=== PATIENT | female | born 1950 | race Caucasian/White ===

== ENCOUNTER → 2023-12-07 20:18 | Outpatient (REF) | payer MEDICARE, OTHER, SELFPAY | LOC: MRI 3T 20:18 | PROVIDERS: ATTENDING PHYSICIAN Internal Medicine Hematology & Oncology; FAMILY PHYSICIAN Family Medicine | DX: C79.51 Secondary malignant neoplasm of bone (principal); C50.911 Malignant neoplasm of unspecified site of right female breast; M81.8 Other osteoporosis without current pathological fracture | CPT/HCPCS: 70553; A9575 ==

== ENCOUNTER → 2024-08-23 10:31 | Outpatient (REF) | payer MEDICARE, OTHER, SELFPAY | LOC: MRI 3T 10:31 | PROVIDERS: ATTENDING PHYSICIAN Internal Medicine Hematology & Oncology; FAMILY PHYSICIAN Family Medicine | DX: C79.51 Secondary malignant neoplasm of bone (principal); C50.911 Malignant neoplasm of unspecified site of right female breast | CPT/HCPCS: 72157; A9575 ==

== ENCOUNTER → 2025-08-01 12:25 | Outpatient (REF) | payer MEDICARE, OTHER, SELFPAY | LOC: HWRAD 12:25 | PROVIDERS: ATTENDING PHYSICIAN Internal Medicine Critical Care Medicine; FAMILY PHYSICIAN Family Medicine; REFERRING PHYSICIAN Internal Medicine Hematology & Oncology | DX: R91.1 Solitary pulmonary nodule (principal) | CPT/HCPCS: 71250 ==

== ENCOUNTER 2025-08-27 13:59 | Inpatient (IN) | payer MEDICARE, OTHER, SELFPAY ==
[2025-08-19 13:41] VITALS: BMI 23.3
[2025-08-19 13:57] LABS: INR 0.95; PT 13.0 Sec (11.4-14.6)
[2025-08-19 13:58] LABS: APTT 24.2 Sec (23.4-35.0)
[2025-08-26] VITALS (18 sets, daily range): BP systolic 85–175; BP diastolic 60–99; BMI 23.3
[2025-08-26] MEDS: VENTOLIN NEBULES 2.5 MG INH ×4 (07:17→20:25)
[2025-08-26] MEDS: DUONEB 3 ML INH (10:07)
--- NOTE | 2025-08-26 10:47 | W.PN.UPDATE ---
Update Note
Progress Note Update
Full H&P to follow. Discussed w/ Dr. Dean and MEDICAL INSURANCE CLAIMS SPECIALIST, pt is 75F former tobacco use hx breast cancer and family history lung cancer, here for outpt bronchoscopy to evaluate chronic cough and pulmonary nodules. Procedure was complicated w large
left pneumothorax requiring 8L to maintain saturation. IR placing chest tube. Admit to IMU for closer monitoring.
--- NOTE | 2025-08-26 10:50 | HPS.HSE ---
Family Physician
-
Family Physician: Meka Loyola
Chief Complaint
-
Shortness of breath
History of Present Illness
75F former smoker HTN pulm nodules chronic cough presented for outpatient bronchoscopy complicated with Large Left Pneumothorax, Acute Hypoxia required 8L, s/p chest tube placement with subsequent improvement in symptoms/hypoxia noted.
Medical History
Past Medical History
Past Medical History: Reports Other (as above )
Past Surgical History: Reports Other (as above)
Social History
Tobacco: Former Smoker
Alcohol: None
Drug: None
Personal:
Living: With Family
Family History
Family History: Not pertinent
Allergies / Home Medications
Allergies reflects when Allergies were last updated in [facility].
Home Medications with original date entered in [facility]
Allergy/Medication List:
Allergies
Allergy/AdvReac Type Severity Reaction Status Date / Time
bacitracin (From Neosporin Allergy Rash Verified 08/26/25 07:02
([id number]))
docetaxel (From Taxotere) Allergy increased Verified 08/26/25 07:02
HR/loss of
consciousness
neomycin (From Neosporin Allergy Rash Verified 08/26/25 07:02
([id number]))
Penicillins Allergy family hx Verified 08/26/25 07:02
anaphylaxis
polymyxin B (From Neosporin Allergy Rash Verified 08/26/25 07:02
([id number]))
Home Medications
Caltrate with Vitamin D3 1 tab PO DAILY Supplement 08/22/25
Vitamin B12 1,000 mg PO DAILY Supplement 08/22/25
albuterol sulfate 90 mcg/actuation aerosol inhaler 1 puff inhalation PRN PRN cough 08/22/25
ascorbic acid (vitamin C) 500 mg tablet (Vitamin C) 500 mg PO DAILY Supplement 08/22/25
bisacodyl 5 mg tablet,delayed release (Dulcolax (bisacodyl)) 5 mg PO DAILY PRN constipation 08/22/25
fluticasone fur. 100 mcg-umeclid 62.5 mcg-vilant 25 mcg inhalat.powder (Trelegy Ellipta) 1 inh inhalation PRN PRN cough 08/22/25
fulvestrant 250 mg/5 mL intramuscular syringe 500 mg IM .Q 28 DAYS Cancer 08/22/25
ibuprofen 200 mg tablet (Advil) 200 mg PO Q6H PRN pain/cough 08/22/25
metoprolol succinate 25 mg tablet,extended release 24 hr 25 mg PO HS Blood Pressure 08/22/25
ribociclib 400 mg/day (200 mg x 2) tablets (Kisqali) 400 mg PO DAILY Cancer 08/22/25
Review of Systems
-
A 12 point ROS was completed and negative except as noted: Yes
Constitutional: Reports Other (as below)
Physical Exam
Vital Signs
Vital Signs
Temp Pulse Resp BP Pulse Ox
98.5 F 96 22 146/92 96
08/26/25 09:17 08/26/25 10:42 08/26/25 10:42 08/26/25 10:42 08/26/25 10:42
Physical Exam
General: Other (as below)
Laboratory Results
-
Laboratory Results
PT 13.0 Sec (11.4-14.6) 08/19/25 13:23
INR 0.95 08/19/25 13:23
APTT 24.2 Sec (23.4-35.0) 08/19/25 13:23
Impression/Plan
-
ROS
General: Denies fever chills night sweats unexpected weight loss
Neuro: Denies seizure shaking loss of consciousness dizziness vertigo
Psych: denies depression hallucinations confusion manic episodes
Endocrine: Denies polyuria polydipsia polyphagia heat/cold intolerance
HEENT: Denies blindness visual disturbances epistaxis
Pulmonary: Reports chronic cough
Cardiovascular: denies chest pain palpitations leg swelling
Hematology: denies signs symptoms of anemia easy bruising/bleeding
Gastrointestinal: denies nausea vomiting diarrhea constipation hematemesis hematochezia melena
Genito-Urinary: denies retention incontinence dysuria
Musculoskeletal: reports left shoulder ribs pain
Dermatology: denies rash laceration bruising
Physical Exam
General: mild moderate distress d/t pain Left shoulder ribs
HEENT: Normocephalic, Anicteric and Moist Mucous Membranes
Cardiovascular: S1/S2 and Regular Rhythm
Respiratory: Clear, Non-Labored Respirations left sided chest tube in place
GI: Soft, Non Distended and Non Tender
Neurology: AOx3 conversant coherent
Psych: Calm, intact judgement
IMPRESSION:
75F former smoker HTN pulm nodules chronic cough presented for outpatient bronchoscopy complicated with Large Left Pneumothorax, Acute Hypoxia required 8L, s/p chest tube placement with subsequent improvement in symptoms/hypoxia noted.
PLAN:
Iatrogenic pneumothorax s/p elective bronchoscopy 08/26/25
s/p chest tube by IR 08/26/25
Pulmonary nodule, 1.5cm RML
Chronic cough
Breast Ca b/l mastectomies s/p implants
-Pulm Eval appreciated
-monitor in IMU
-follow up CMP Mg Phos
-pain control
-chest tube mgmt as per pulm/IR
Leukocytosis suspect stress reactive
-trend WBC
-monitor temp
-consider empiric abx if develops further signs of infection
DVT ppx scd
Full code
Discussed with patient and patient's family, including Arnav.
I spent a total of 75 minutes with the patient or on the floor. More than 50% of this time involved counseling and coordination of care.
[2025-08-26] MEDS: DILAUDID 0.5 MG IV ×2 (12:56→15:23)
--- NOTE | 2025-08-26 13:07 | PTCARENOTE ---
Patient arrived to IMU from IR. AOx3. Weaned patient to 4L NC with SpO2 98%. L sided chest tube in place -20 cm. Dressing c/d/i. NSR on monitor. BP stable. C/O of L sided chest pain. PRN pain medication given per JAN. Purewick in place. Call haney
within reach, bed in lowest position, and bed of wheels locked. Family at bedside.
--- NOTE | 2025-08-26 13:32 | CON.PUL ---
Consultation
Consultation Request
Date/Time Consultation Requested: 08/26/25
Date/Time Consultation Performed: 08/26/25
Performing Provider: Jacquelyn
Reason for Consultation: Post op Ptx
Medical History
-
History of Present Illness:
Patient is a 75 year old F with history of pulmonary nodule, former smoker, HTN presenting with postop pneumothorax after scheduled outpatient bronchoscopy today 08/26/25. Had BAL, bronchial brushings performed, post op CXR showing moderate sized L
ptx. Admitted for chest tube placement by IR. Currently admits to L sided chest/shoulder pain at site of chest tube but no cough/SOB.
Had recent CT showing 1.5cm RML nodule that was sampled. Data still pending.
She also has history of chronic cough, in past with chronic bronchiolitis diagnosis. Follows with Dr Spencer as outpatient.
Past Medical History
Past Medical History: Other (see list below)
Social History
Tobacco: Former Smoker
Alcohol: None
Drug: None
Family History
Family History: Reviewed & Not Pertinent
Allergies / Home Medications
Allergies
Allergy/AdvReac Type Severity Reaction Status Date / Time
bacitracin (From Neosporin Allergy Rash Verified 08/26/25 07:02
([id number]))
docetaxel (From Taxotere) Allergy increased Verified 08/26/25 07:02
HR/loss of
consciousness
neomycin (From Neosporin Allergy Rash Verified 08/26/25 07:02
([id number]))
Penicillins Allergy family hx Verified 08/26/25 07:02
anaphylaxis
polymyxin B (From Neosporin Allergy Rash Verified 08/26/25 07:02
([id number]))
Home Medications
�Medication �Instructions �Recorded �Confirmed �Last Taken �Type
Caltrate with Vitamin D3 1 tab PO DAILY 08/22/25 08/26/25 08/22/25 History
Vitamin B12 1,000 mg PO DAILY 1008/26/25 08/22/25 History
albuterol sulfate 90 mcg/actuation 1 puff inhalation PRN PRN cough 08/22/25 08/26/25 08/26/25 01:00 History
aerosol inhaler
ascorbic acid (vitamin C) 500 mg 500 mg PO DAILY 08/22/25 08/26/25 08/20/25 History
tablet (Vitamin C)
bisacodyl 5 mg tablet,delayed 5 mg PO DAILY PRN constipation 08/22/25 08/26/25 08/12/25 History
release (Dulcolax (bisacodyl))
fluticasone fur. 100 mcg-umeclid 1 inh inhalation PRN PRN cough 08/22/25 08/26/25 08/19/25 History
62.5 mcg-vilant 25 mcg
inhalat.powder (Trelegy Ellipta)
fulvestrant 250 mg/5 mL 500 mg IM .Q 28 DAYS 08/22/25 08/26/25 08/01/25 History
intramuscular syringe
ibuprofen 200 mg tablet (Advil) 200 mg PO Q6H PRN pain/cough 08/22/25 08/26/25 08/22/25 History
metoprolol succinate 25 mg 25 mg PO HS 08/22/25 08/26/25 08/26/25 05:30 History
tablet,extended release 24 hr
ribociclib 400 mg/day (200 mg x 2) 400 mg PO DAILY 08/22/25 08/26/25 2 Weeks Ago History
tablets (Kisqali) ~08/08/25
Review of Systems
-
History Source: Patient
All other systems: Negative unless noted
Vitals / Labs / Diagnostic Testing
Vital Signs
Temp Pulse Resp BP Pulse Ox
97.9 F 76 16 163/74 98
08/26/25 11:50 08/26/25 13:25 08/26/25 13:25 08/26/25 12:39 08/26/25 13:25
Microbiology
08/26/25 09:13 Bronch Left Upper Lobe Gram Stain - Preliminary
08/26/25 09:13 Bronch Left Upper Lobe Gram Stain - Preliminary
08/26/25 09:13 Bronchoalveolar Lavage Fungal Culture - Preliminary
Culture in progress.
Positive cultures are reported as soon as detected.
Final report to follow in four to five weeks.
08/26/25 09:13 Bronch Left Upper Lobe Fungal Culture - Preliminary
Culture in progress.
Positive cultures are reported as soon as detected.
Final report to follow in four to five weeks.
Diagnostic Testing:
Physical Exam
-
HEENT: Normocephalic, Anicteric and Moist Mucous Membranes
Cardiovascular: S1/S2 and Regular Rhythm
Respiratory: Clear, Non-Labored Respirations and Other (chest tube)
GI: Soft, Non Distended and Non Tender
Neurology: Awake, Alert, Oriented and No Motor Deficits
Skin: Warm, Dry and Good Color
General: Comfortable and Other (NAD)
Assessment
-
Patient is a 75 year old F with history of pulmonary nodule, former smoker, HTN presenting with postop pneumothorax after scheduled outpatient bronchoscopy today 08/26/25. Had BAL, bronchial brushings performed, post op CXR showing moderate sized L
ptx. Admitted for chest tube placement by IR. Currently admits to L sided chest/shoulder pain at site of chest tube but no cough/SOB. We are consulted for evaluation 08/26/25.
Iatrogenic pneumothorax s/p elective bronchoscopy 08/26/25
s/p chest tube by IR 08/26/25
Pulmonary nodule, 1.5cm RML
Chronic cough
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
Former smoker
Osteopenia
HTN
Hydromyelia
Lumpectomy
BL Mastectomy s/p implants
Plan
No oxygen was needed on admission, currently saturating >90% on RA
Prior history of lung disease is noted including chronic cough, bronchiolitis, lung nodule
Followed by Dr Spencer
s/p elective bronchoscopy 08/26, await final on culture/path
CXR/CT obtained indicating PTX, can obtain CXR now
No air leak at chamber, can place on WTS through evening to AM and clamp in AM if remains stable
Other imaging reviewed--prior CT with nodule noted
Pain control, agree wtih PO/IV PRNs
Tylenol can change to solution, she has trouble with pills per family
No prior CAD history
No prior ECHO for review
Smoking history noted
Will need outpatient pulmonary evaluation in our office for PFTs and 6MWT
Reviewed with patient
Hopeful d/c in next 24 hours if doing well with chest tube/discontinuation process
Spoke with family in detail, all questions answered
We will follow
Diagnostic Data
Chest X-Ray: 08/26/25- Large left-sided pneumothorax with partial collapse of the left lung.
CT Scan: 08/01/25- 1. Stable sclerotic lesion within the T11 vertebral body. Otherwise no definitive evidence for metastatic disease within the chest.
2. Multiple peripheral/subpleural tree-in-bud nodules within both lower lobes compatible with infectious or inflammatory bronchiolitis. Chronic bronchiectasis and airspace consolidation within the lingula. Scattered bronchial impaction within the
right middle lobe with nodular consolidation peripherally measuring up to 10 mm. There also appears to be some bronchiectasis within the medial left upper lobe with some adjacent irregular opacities, likely inflammatory or infectious.
3. Couple of scattered irregular peripheral opacities within the right upper lobe, the largest measuring up to 12 mm laterally, also likely infectious or inflammatory in nature.
4. New area of subpleural reticulation and thickening within the anterior left upper lobe, likely scarring.
5. No gross hilar or mediastinal lymphadenopathy.
Echo:
PFT's:
Reports and relevant images were personally reviewed.
Total time spent on this consultation __75__ minutes which includes review of history, physical exam, medications, laboratory data, personal review of imaging, extensive review of outpatient records, discussion with care team and respiratory therapy.
[2025-08-26] MEDS: LIDOCAINE 4% PATCH 1 PATCH TOPICAL ×2 (15:23→15:24)
[2025-08-26 15:24] LABS: Hematocrit 35.9 % (37.0-47.0); Hemoglobin 11.5 g/dL (12.0-16.0); Mean Corp Hgb Conc. 32.0 g/dL (33.0-37.0); Mean Corpuscular Volume 101.1 fL (81.0-99.0); Platelet Count 307 10^3/uL (130-400); Red Cell Dist. Width 13.8 % (11.5-14.5)
--- NOTE | 2025-08-26 15:50 | PTCARENOTE ---
Attempted to wean patient to RA, but SpO2 87%. Placed patient back on 2L with SpO2 improvement to 95%.
[2025-08-26 16:01] LABS: Magnesium 1.8 mg/dl (1.6-2.3)
[2025-08-26 16:20] LABS: ALT (SGPT) 31 U/L (0-35); AST (SGOT) 32 U/L (14-36); Albumin 4.1 g/dl (3.5-5.0); Alkaline Phosphatase 73 U/L (38-126); Blood Urea Nitrogen 12 mg/dl (7-17); Calcium 8.3 mg/dl (8.4-10.2); Carbon Dioxide 18 mmol/L (22-30); Chloride 110 mmol/L (98-107); Estimated Creatinine Clearance 64 ml/min; Glucose 196 mg/dl (70-99); Potassium 4.6 mmol/L (3.5-5.1); Sodium 139 mmol/L (135-145); Total Protein 6.9 g/dl (6.3-8.2); eGFR > 60.00
[2025-08-26] MEDS: TYLENOL ORAL SOLUTION 650 MG PO (17:44)
[2025-08-26] MEDS: REMOVE LIDOCAINE PATCH 2 PATCH REMOVE (19:59)
[2025-08-26] MEDS: DILAUDID 1 MG IV (19:59)
[2025-08-26] MEDS: TOPROL XL 25 MG PO (21:21)
[2025-08-26] MEDS: TYLENOL ORAL SOLUTION PO (23:23)
[2025-08-27] VITALS (13 sets, daily range): BP systolic 104–173; BP diastolic 43–94
[2025-08-27] MEDS: TUMS CHEWABLE TABLET 400 MG PO (00:27)
[2025-08-27] MEDS: DILAUDID 1 MG IV (00:27)
--- NOTE | 2025-08-27 02:34 | PTCARENOTE ---
Pt appearing to get rest over night. Pt requesting pain medication when needed, see mar. Pt able to ambulate to bathroom [id number] for help moving chest tube. ChT remains on water seal no air leak seen, site clean dry and intact. Pt having complaints of
indigestions after Tylenol. MERCHANDISE BUYER made aware, order for prn Tums placed. Assessment care and vitals as charted. call bel within reach, bed in lowest position.
[2025-08-27] MEDS: ZOFRAN 4 MG IV (04:13)
[2025-08-27] MEDS: DUONEB 3 ML INH (04:32)
[2025-08-27] MEDS: TYLENOL ORAL SOLUTION PO ×4 (04:46→22:56)
--- NOTE | 2025-08-27 04:46 | PTCARENOTE ---
Pt having complaints of nausea. Night THERAPIST RESPIRATORY placed order for Zofran. Pt having some relief at this time. Pt also requesting a breathing treatment, RT to bed side.
[2025-08-27] MEDS: VENTOLIN NEBULES INH (07:22)
[2025-08-27] MEDS: VITAMIN B-12 PO (07:24)
[2025-08-27] MEDS: LIDOCAINE 4% PATCH TOPICAL ×4 (07:25→07:27)
--- NOTE | 2025-08-27 08:12 | W.PN.HOSP.TC ---
Today's Communication/Plan
-
Follow up CXR in AM
urinalysis reflex cx
PT eval
trend WBC
possible discharge tomorrow if stable/cont to improve.
Assessment / Plan
Assessment / Plan
Physical Exam
General: no acute distress, appears comfortable at this time
HEENT: Normocephalic, Anicteric and Moist Mucous Membranes
Cardiovascular: S1/S2 and Regular Rhythm
Respiratory: Clear, Non-Labored Respirations left sided chest tube in place
GI: Soft, Non Distended and Non Tender
Neurology: AOx3 conversant coherent
Psych: Calm, intact judgement
IMPRESSION:
75F former smoker HTN pulm nodules chronic cough presented for outpatient bronchoscopy complicated with Large Left Pneumothorax, Acute Hypoxia required 8L, s/p chest tube placement with subsequent improvement in symptoms/hypoxia noted.
PLAN:
Iatrogenic pneumothorax s/p elective bronchoscopy 08/26/25
s/p chest tube by IR 08/26/25
Pulmonary nodule, 1.5cm RML
Chronic cough
Breast Ca b/l mastectomies s/p implants
-Pulm Eval appreciated
-monitor in IMU
-pain control
-chest tube mgmt as per pulm/IR, chest tube removed later in day 08/27 with post-removal CXR noted no pneumothorax, repeat CXR in AM tomorrow, possible discharge then if CXR remains clear of pneumothorax.
Leukocytosis suspect stress reactive
-WBC increasing
-briefly was started on ceftriaxone and doxycycline, discontinued with negative procalcitonin
-monitor temp and trend wbc
-check urinalysis reflex cx (reports of urinary frequency urgency- see patient care note 08/27 15:56)
PT eval requested (requiring assist x1 when oob)
DVT ppx scd
Full code
Discussed with patient and patient's Arnav.
I spent a total of 45 minutes with the patient or on the floor. More than 50% of this time involved counseling and coordination of care.
Anticipated Discharge: Within 24 hours
Subjective/Interval History
-
Date of Service: August 27, 2025
No acute distress, appears relatively comfortably, chronic cough persist. Pain from chest tube controlled at this time.
Objective Data
-
Labs:
Laboratory Results
08/27/25 08/27/25
07:44 07:48
WBC Pending
Hgb Pending
Hct Pending
Plt Count Pending
Sodium Pending
Potassium Pending
Chloride Pending
Carbon Dioxide Pending
BUN Pending
Creatinine Pending
Glucose Pending
Calcium Pending
Vital Signs:
Vital Signs
Temp Pulse Resp BP Pulse Ox
97.8 F 82 12 114/47 92
08/27/25 07:33 08/27/25 06:00 08/27/25 06:00 08/27/25 06:00 08/27/25 06:00
I&O
08/26/25 08/27/25 08/28/25
06:59 06:59 06:59
Intake Total 1070 / 1070
Output Total 3 / 3
Balance 1067 / 1067
[2025-08-27 08:21] LABS: Hematocrit 35.9 % (37.0-47.0); Hemoglobin 11.2 g/dL (12.0-16.0); Mean Corp Hgb Conc. 31.2 g/dL (33.0-37.0); Mean Corpuscular Volume 103.5 fL (81.0-99.0); Platelet Count 271 10^3/uL (130-400); Red Cell Dist. Width 14.1 % (11.5-14.5)
[2025-08-27] MEDS: COMPAZINE 5 MG IV (08:53)
--- NOTE | 2025-08-27 08:56 | PTCARENOTE ---
Patient c/o nausea. Dr. Gresham made aware and ordered IV compazine. Administered to patient. HOB 90 degrees. Emesis bag within reach. Care ongoing.
[2025-08-27 09:13] LABS: Blood Urea Nitrogen 19 mg/dl (7-17); Calcium 9.3 mg/dl (8.4-10.2); Carbon Dioxide 23 mmol/L (22-30); Chloride 109 mmol/L (98-107); Estimated Creatinine Clearance 64 ml/min; Glucose 132 mg/dl (70-99); Magnesium 2.0 mg/dl (1.6-2.3); Potassium 4.7 mmol/L (3.5-5.1); Sodium 137 mmol/L (135-145); eGFR > 60.00
--- NOTE | 2025-08-27 09:16 | W.PN.PUL3 ---
Today's Communication / Plan
-
Remains stable on RA, pain better this AM
Chest tube without air leak, CXR wtih possible small apical ptx
Can still try clamp trial, repeat CXR in 1 hour, reviewed with RN
If can be discontinued, can plan for d/c planning
Assessment
-
Patient is a 75 year old F with history of pulmonary nodule, former smoker, HTN presenting with postop pneumothorax after scheduled outpatient bronchoscopy today 08/26/25. Had BAL, bronchial brushings performed, post op CXR showing moderate sized L
ptx. Admitted for chest tube placement by IR. Currently admits to L sided chest/shoulder pain at site of chest tube but no cough/SOB. We are consulted for evaluation 08/26/25.
Iatrogenic pneumothorax s/p elective bronchoscopy 08/26/25
s/p chest tube by IR 08/26/25
Pulmonary nodule, 1.5cm RML
Chronic cough
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
Former smoker
Osteopenia
HTN
Hydromyelia
Lumpectomy
BL Mastectomy s/p implants
Plan
No oxygen was needed on admission, currently saturating >90% on RA
Prior history of lung disease is noted including chronic cough, bronchiolitis, lung nodule
Followed by Dr Spencer
s/p elective bronchoscopy 08/26, await final on culture/path
CXR/CT obtained indicating PTX, can obtain CXR now
No air leak at chamber, can place on WTS through evening to AM and clamp in AM if remains stable
Other imaging reviewed--prior CT with nodule noted
Tolerated WTS but has possible apical ptx, can still trial clamp and see if she maintains
No airleak in chamber
Repeat CXR in 1 hour of trial, reviewed with RN
Pain control, agree wtih PO/IV PRNs
Tylenol can change to solution, she has trouble with pills per family
No prior CAD history
No prior ECHO for review
Smoking history noted
Will need outpatient pulmonary evaluation in our office for PFTs and 6MWT
Reviewed with patient
Spoke with family in detail, all questions answered
If doing well and chest tube discontinued, can eval for d/c planning
Diagnostic Data
Chest X-Ray: 08/26/25- Large left-sided pneumothorax with partial collapse of the left lung.
CT Scan: 08/01/25- 1. Stable sclerotic lesion within the T11 vertebral body. Otherwise no definitive evidence for metastatic disease within the chest.
2. Multiple peripheral/subpleural tree-in-bud nodules within both lower lobes compatible with infectious or inflammatory bronchiolitis. Chronic bronchiectasis and airspace consolidation within the lingula. Scattered bronchial impaction within the
right middle lobe with nodular consolidation peripherally measuring up to 10 mm. There also appears to be some bronchiectasis within the medial left upper lobe with some adjacent irregular opacities, likely inflammatory or infectious.
3. Couple of scattered irregular peripheral opacities within the right upper lobe, the largest measuring up to 12 mm laterally, also likely infectious or inflammatory in nature.
4. New area of subpleural reticulation and thickening within the anterior left upper lobe, likely scarring.
5. No gross hilar or mediastinal lymphadenopathy.
Echo:
PFT's:
Reports and relevant images were personally reviewed.
Total time spent on this consultation __51__ minutes which includes review of history, physical exam, medications, laboratory data, personal review of imaging, extensive review of outpatient records, discussion with care team and respiratory therapy.
Subjective Data
-
Date of Service:
Date of Service: August 27, 2025
Chief Complaint: Pulmonary Follow Up
Subjective:
Reports nausea, decreased PO intake
Stable on RA
Pain better this AM
Objective Data
Data Reviewed
Vital Signs / I&O / Oxygen:
Vital Signs
Temp Pulse Resp BP Pulse Ox
97.8 F 84 18 173/81 95
08/27/25 07:33 08/27/25 08:14 08/27/25 08:14 08/27/25 08:01 08/27/25 08:14
Intake and Output
08/26/25 08/27/25 08/28/25
06:59 06:59 06:59
Intake Total 1070 / 1070
Output Total 3 / 3
Balance 1067 / 1067
SaO2 95
Nasal Cannula flow liters per 2
minute
Physical Exam
General: Comfortable and Other (NAD)
HEENT: Normocephalic, Anicteric and Moist Mucous Membranes
Cardiovascular: S1-S2 and Regular Rhythm
Respiratory: Clear, Non-Labored Respirations and Chest Tube
GI: Soft, Non Distended and Non Tender
Neurology: Awake, Alert, Oriented and No Motor Deficits
Skin: Warm, Dry and Good Color
Labs/Micro/Reports
Lab Data
08/27/25 08:13
08/27/25 08:13
Microbiology
08/26/25 09:13 Bronch Left Upper Lobe Gram Stain - Preliminary
08/26/25 09:13 Bronch Left Upper Lobe Gram Stain - Preliminary
08/26/25 09:13 Bronchoalveolar Lavage Fungal Culture - Preliminary
Culture in progress.
Positive cultures are reported as soon as detected.
Final report to follow in four to five weeks.
08/26/25 09:13 Bronch Left Upper Lobe Fungal Culture - Preliminary
Culture in progress.
Positive cultures are reported as soon as detected.
Final report to follow in four to five weeks.
[2025-08-27 09:20] LABS: Glycohemoglobin (HgbA1c) 5.6 % (4.0-5.6)
[2025-08-27] MEDS: ROCEPHIN 2000 MG IV (09:45)
[2025-08-27] MEDS: STERILE WATER FOR INJECTION 20 ML IV (09:45)
[2025-08-27] MEDS: ROBITUSSIN 200 MG PO (09:45)
[2025-08-27] MEDS: VIBRAMYCIN 260 MG IV (10:30)
[2025-08-27 10:44] LABS: Procalcitonin < 0.05 ng/ml (0.0-0.25)
--- NOTE | 2025-08-27 11:11 | PTCARENOTE ---
L sided chest tube clamped at [address] Valladares order. Advised patient to let staff know if she starts to have shortness of breath. Call haney within reach. SpO2 95% on RA. Repeat CXR one hour post clamping chest tube. Care ongoing.
--- NOTE | 2025-08-27 11:44 | PTCARENOTE ---
Patient's pulse ox was disconnected. RN to bedside. Patient found sitting on toilet by herself. Ambulated patient safely back to bed and educated her that she is not allowed to get out of bed without staff assistance. Bed alarm on and audible. Call
haney within reach.
--- NOTE | 2025-08-27 14:10 | PTCARENOTE ---
Patient off unit to IR to remove L chest tube
--- NOTE | 2025-08-27 15:08 | PN.IRAD.UPD ---
Update Note - IRAD
- -
Left chest tube removed . New ,dry,clean dressing placed over site with Vaseline gauze. Patient tolerated procedure well
--- NOTE | 2025-08-27 15:13 | PTOTSP ---
Speech Therapy Evaluation:
Pt with chronic risk factors of dysphagia including prior hx of lung disease including chronic cough, bronchiolitis, lung nodules, and pneumonia hx. At bedside, pt denied any trouble swallowing solids/liquids, however endorsed difficulty with
medications, which she reported was all 'mental.' Pt with adequate insight on how to alleviate difficulty with medications. Current CXR with clear lungs, pt on room air, and pt without dysphagia hx.
Recommend:
1. Regular solids and thin liquids
2. Meds as best tolerated
3. General aspiration and reflux precautions
4. PROFESSOR OF RELIGION to s/o - please reconsult if concern for aspiration arises.
--- NOTE | 2025-08-27 15:55 | PTCARENOTE ---
Patient arrived back from IR post L chest tube removal. Dressing c/d/i. SpO2 96% on RA. Denies shortness of breath. VSS. Call haney within reach and bed alarm on and audible.
--- NOTE | 2025-08-27 15:56 | PTCARENOTE ---
Patient AOx3. Forgetful at times. Bed alarm on and audible. NSR on monitor. BP stable. On RA throughout shift. Dry frequent cough. Patient stated that 'pain is much better on left side since chest tube was removed'. Assist x1 when OOB. Patient has
frequency and urgency when urinating. Denies nausea after PRN compazine given. Call haney within reach, bed in lowest position, and bed of wheels locked.
--- NOTE | 2025-08-27 16:03 | CM ---
Initial Assessment Completed By BRENDEN Pressley.
Patient lives in a 2 story house with her , with 2 steps to enter the home, a stair glide inside, uses No DME, had No Home PT/VN nor Inpatient Rehab.
PCP: > Meka Ferris
Pharmacy: [facility] on [address] [place] [address] in [facility]
Patient has transportation home when ready. PLAN: Anticipate Home No Needs.
[2025-08-27] MEDS: TOPROL XL 25 MG PO (22:03)
[2025-08-28] VITALS (7 sets, daily range): BP systolic 123–158; BP diastolic 55–93; PULSE 83; O2SAT 96; BMI 22.1
[2025-08-28] MEDS: TYLENOL ORAL SOLUTION 650 MG PO ×2 (00:10→09:00)
[2025-08-28 00:17] LABS: Urine Character Clear (Clear)
[2025-08-28 00:31] LABS: Urine Red Blood Cell 0-2 /HPF (0-2); Urine Squamous Cell 0-2 /LPF (Few)
--- NOTE | 2025-08-28 02:18 | DOWNTIME ---
There was a [employer] Client Turret Lathe Machinist Downtime on 08/28/2025 from 0100 to 08/28/2025 at 0215. Downtime documentation of patient's care, including medication administrations, has been reconciled in the electronic record per guidelines. Refer to the
patient's paper chart under the miscellaneous tab to see printed paper medication records and downtime forms.
[2025-08-28] MEDS: TYLENOL ORAL SOLUTION PO (06:06)
[2025-08-28 06:34] LABS: Hematocrit 38.0 % (37.0-47.0); Hemoglobin 12.3 g/dL (12.0-16.0); Mean Corp Hgb Conc. 32.4 g/dL (33.0-37.0); Mean Corpuscular Volume 100.8 fL (81.0-99.0); Nucleated Red Blood Cells % 0 %; Platelet Count 278 10^3/uL (130-400); Red Cell Dist. Width 13.9 % (11.5-14.5)
[2025-08-28 06:54] LABS: Blood Urea Nitrogen 15 mg/dl (7-17); Calcium 9.2 mg/dl (8.4-10.2); Carbon Dioxide 25 mmol/L (22-30); Chloride 111 mmol/L (98-107); Estimated Creatinine Clearance 64 ml/min; Glucose 88 mg/dl (70-99); Potassium 4.0 mmol/L (3.5-5.1); Sodium 139 mmol/L (135-145); eGFR > 60.00
[2025-08-28] MEDS: VITAMIN B-12 1000 MCG PO (08:57)
--- NOTE | 2025-08-28 11:36 | W.PN.PUL3 ---
Today's Communication / Plan
-
Chest tube discontinued 08/27
Repeat CXR this AM remains stable
No events ON, no new complaints
D/c planning per team, she has appt next week, instructed to keep
Assessment
-
Patient is a 75 year old F with history of pulmonary nodule, former smoker, HTN presenting with postop pneumothorax after scheduled outpatient bronchoscopy today 08/26/25. Had BAL, bronchial brushings performed, post op CXR showing moderate sized L
ptx. Admitted for chest tube placement by IR. Currently admits to L sided chest/shoulder pain at site of chest tube but no cough/SOB. We are consulted for evaluation 08/26/25.
Iatrogenic pneumothorax s/p elective bronchoscopy 08/26/25
s/p chest tube by IR 08/26/25
Pulmonary nodule, 1.5cm RML
Chronic cough
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
Former smoker
Osteopenia
HTN
Hydromyelia
Lumpectomy
BL Mastectomy s/p implants
Plan
No oxygen was needed on admission, currently saturating >90% on RA
Prior history of lung disease is noted including chronic cough, bronchiolitis, lung nodule
Followed by Dr Spencer
s/p elective bronchoscopy 08/26, await final on culture/path
CXR/CT obtained indicating PTX, can obtain CXR now
No air leak at chamber, can place on WTS through evening to AM and clamp in AM if remains stable
Other imaging reviewed--prior CT with nodule noted
Tolerated WTS but has possible apical ptx, can still trial clamp and see if she maintains
No airleak in chamber
Repeat CXR in 1 hour of trial, reviewed with RN
CT discontinued 08/27, tolerated well
Repeat CXR this AM-stable
Pain control, agree wtih PO/IV PRNs
Tylenol can change to solution, she has trouble with pills per family
No prior CAD history
No prior ECHO for review
Smoking history noted
Will need outpatient pulmonary evaluation in our office for PFTs and 6MWT
Reviewed with patient
Spoke with family in detail, all questions answered
If doing well and chest tube discontinued, can eval for d/c planning
Diagnostic Data
Chest X-Ray: 08/26/25- Large left-sided pneumothorax with partial collapse of the left lung.
CT Scan: 08/01/25- 1. Stable sclerotic lesion within the T11 vertebral body. Otherwise no definitive evidence for metastatic disease within the chest.
2. Multiple peripheral/subpleural tree-in-bud nodules within both lower lobes compatible with infectious or inflammatory bronchiolitis. Chronic bronchiectasis and airspace consolidation within the lingula. Scattered bronchial impaction within the
right middle lobe with nodular consolidation peripherally measuring up to 10 mm. There also appears to be some bronchiectasis within the medial left upper lobe with some adjacent irregular opacities, likely inflammatory or infectious.
3. Couple of scattered irregular peripheral opacities within the right upper lobe, the largest measuring up to 12 mm laterally, also likely infectious or inflammatory in nature.
4. New area of subpleural reticulation and thickening within the anterior left upper lobe, likely scarring.
5. No gross hilar or mediastinal lymphadenopathy.
Echo:
PFT's:
Reports and relevant images were personally reviewed.
Total time spent on this consultation __45__ minutes which includes review of history, physical exam, medications, laboratory data, personal review of imaging, extensive review of outpatient records, discussion with care team and respiratory therapy.
Subjective Data
-
Date of Service:
Date of Service: August 28, 2025
Chief Complaint: Pulmonary Follow Up
Subjective:
Doing well, no new complaints
Stable on RA
Objective Data
Data Reviewed
Vital Signs / I&O / Oxygen:
Vital Signs
Temp Pulse Resp BP Pulse Ox
97.9 F 81 18 158/93 96
08/28/25 08:24 08/28/25 10:00 08/28/25 10:00 08/28/25 09:42 08/28/25 09:42
Intake and Output
08/27/25 08/28/25 08/29/25
06:59 06:59 06:59
Intake Total 1070 / 1070 1220 / 1220
Output Total 200 / 200 300 / 300
Balance 1067 / 1067 1020 / 1020 -300 / -300
SaO2 96
Nasal Cannula flow liters per 2
minute
Physical Exam
General: Comfortable and Other (NAD)
HEENT: Normocephalic, Anicteric and Moist Mucous Membranes
Cardiovascular: S1-S2 and Regular Rhythm
Respiratory: Clear and Non-Labored Respirations
GI: Soft, Non Distended and Non Tender
Neurology: Awake, Alert, Oriented and No Motor Deficits
Skin: Warm, Dry and Good Color
Labs/Micro/Reports
Lab Data
08/28/25 05:49
08/28/25 05:49
Microbiology
08/26/25 09:13 Bronch Left Upper Lobe Respiratory Culture - Final
NO GROWTH
08/26/25 09:13 Bronch Left Upper Lobe Gram Stain - Final
08/26/25 09:13 Bronch Left Upper Lobe Respiratory Culture - Final
08/26/25 09:13 Bronch Left Upper Lobe Gram Stain - Final
08/26/25 09:13 Bronchoalveolar Lavage Fungal Culture - Preliminary
Culture in progress.
Positive cultures are reported as soon as detected.
Final report to follow in four to five weeks.
08/26/25 09:13 Bronch Left Upper Lobe Fungal Culture - Preliminary
Culture in progress.
Positive cultures are reported as soon as detected.
Final report to follow in four to five weeks.
--- NOTE | 2025-08-28 11:57 | W.PN.HOSP.TC ---
Today's Communication/Plan
-
DC home
outpatient pulmonary follow-up
Assessment / Plan
Assessment / Plan
Physical Exam
General: no acute distress, appears comfortable at this time
HEENT: Normocephalic, Anicteric and Moist Mucous Membranes
Cardiovascular: S1/S2 and Regular Rhythm
Respiratory: Clear, Non-Labored Respirations
GI: Soft, Non Distended and Non Tender
Neurology: AOx3 conversant coherent
Psych: Calm, intact judgement
IMPRESSION:
75F former smoker HTN pulm nodules chronic cough presented for outpatient bronchoscopy complicated with Large Left Pneumothorax, Acute Hypoxia required 8L, s/p chest tube placement with subsequent improvement in symptoms/hypoxia noted.
PLAN:
Iatrogenic pneumothorax s/p elective bronchoscopy 08/26/25
s/p chest tube by IR 08/26/25
Pulmonary nodule, 1.5cm RML
Chronic cough
Breast Ca b/l mastectomies s/p implants
-Pulm Eval appreciated
-pain control
-chest tube mgmt as per pulm/IR, chest tube removed later in day 08/27 with post-removal CXR noted no pneumothorax, repeat CXR this morning with no pneumothorax
Follow-up bronchoscopy results are pulmonary in the office-. Preliminary microbiology results seems negative
Leukocytosis suspect stress reactive
-WBC i down trended
-briefly was started on ceftriaxone and doxycycline, discontinued with negative procalcitonin
-monitor temp and trend wbc
- UA seems benign. Patient continues to remain afebrile.
PT eval requested home
DVT ppx scd
Full code
Discussed with patient's Arnav.
Discussed with pulmonary
More than 30 minutes spent in discharge including
Final examination of the patient
Summarizing hospital stay
Instructions for continuing care to all relevant caregivers
Preparation of discharge records, prescriptions, and referral forms
Total time spent (in minutes): 53
Anticipated Discharge: Today
Subjective/Interval History
-
Date of Service: August 28, 2025
Intermittent cough
Chest tube was removed yesterday
On room air
Objective Data
-
Labs:
Laboratory Results
08/28/25
05:49
WBC 15.6 H
Hgb 12.3
Hct 38.0
Plt Count 278
Sodium 139
Potassium 4.0
Chloride 111 H
Carbon Dioxide 25
BUN 15
Creatinine 0.7
Glucose 88
Calcium 9.2
Vital Signs:
Vital Signs
Temp Pulse Resp BP Pulse Ox
98.0 F 81 18 158/93 96
08/28/25 11:44 08/28/25 10:00 08/28/25 10:00 08/28/25 09:42 08/28/25 09:42
I&O
08/27/25 08/28/25 08/29/25
06:59 06:59 06:59
Intake Total 1070 / 1070 1220 / 1220
Output Total 3 / 3 200 / 200 300 / 300
Balance 1067 / 1067 1020 / 1020 -300 / -300
--- NOTE | 2025-08-28 12:04 | W.DCSUMMARY ---
Discharge Summary
Discharge Data
Date of Admission: 08/27/25
Date of Discharge: 08/28/25
-
Pending Results: Yes
Additional Pending Results:
Bronchoscopy results with pulmonary
Hospital Course
75F former smoker HTN pulm nodules chronic cough presented for outpatient bronchoscopy complicated with Large Left Pneumothorax, Acute Hypoxia required 8L, s/p chest tube placement with subsequent improvement in symptoms/hypoxia noted. Oxygen was
able to be weaned off. Pulmonary was consulted. Interventional radiology placed chest tube. Patient underwent chest tube clamping trial. Oxygen was completely weaned off. Patient was stable on room air. Chest tube was eventually removed in
08/27/2025. Overnight patient did well. Repeat chest x-ray on day of discharge with no pneumothorax. Patient also with leukocytosis likely reactive. WBC down trended. Patient being completely afebrile. UA seem benign. Patient will need to
follow-up bronchoscopy results by pulmonary as outpatient.
Discharge Plan
-
Patient Disposition: Home (Routine Discharge)
Discharge Diagnosis/Procedures: Iatrogenic pneumothorax s/p elective bronchoscopy 08/26/25 status post chest tube placement status post chest tube removal
Leukocytosis
Condition: Fair
Diet: Regular
Activity: As tolerated
Driving Restrictions: As prior to admission
Blood Work: CBC in 1 week via primary doctor
Referrals:
Anai Dean MD [Active, Pulmonary Medicine] - in one to two weeks
Referral Note: call to make appt. follow up bronchoscopy results
Meka Loyola MD [Family Provider, Family Practice]
Prescriptions:
Continued
fulvestrant 250 mg/5 mL Syringe
500 mg IM .Q 28 DAYS
Kisqali 400 mg/day (200 mg x 2) Tablet
400 mg PO DAILY
Trelegy Ellipta 100-62.5-25 mcg Blister With Device
1 inh INHALATION PRN PRN (Reason: cough)
ascorbic acid (vitamin C) [Vitamin C] 500 mg Tablet
500 mg PO DAILY
ibuprofen [Advil] 200 mg Tablet
200 mg PO Q6H PRN (Reason: pain/cough)
bisacodyl [Dulcolax (bisacodyl)] 5 mg Tablet,Delayed Release (Dr/Ec)
5 mg PO DAILY PRN (Reason: constipation)
metoprolol succinate 25 mg tablet extended release 24 hr
25 mg PO HS
albuterol sulfate 90 mcg/actuation HFA aerosol inhaler
1 puff INHALATION PRN PRN (Reason: cough)
Caltrate with Vitamin D3
1 tab PO DAILY
Vitamin B12
1,000 mg PO DAILY
Discharge Orders:
Discharge Patient (As Directed); Ordered 08/28/25
Ordered By: Marlon Espinoza
Discharge Date and Time
Discharge Date/Time: 08/28/25 13:41
Print Language: TONGAN
--- NOTE | 2025-08-28 16:29 | CM ---
F/U: Patient is discharge and has no needs. PLAN: Home No Needs.
== END 2025-08-28 13:41 | disposition home or self-care (01) | DRG 168 ==
LOC: IMU 13:59
PROVIDERS: Internal Medicine; Nurse Practitioner Family; ADMITTING PHYSICIAN Internal Medicine; ATTENDING PHYSICIAN Hospitalist; FAMILY PHYSICIAN Family Medicine; OTHER PHYSICIAN Internal Medicine
PROC: 0W9B40Z Drainage of Left Pleural Cavity with Drainage Device, Percutaneous Endoscopic Approach (ICD-10-PCS; 2025-08-26)
PROC: 0B9C8ZX Drainage of Right Upper Lung Lobe, Via Natural or Artificial Opening Endoscopic, Diagnostic (ICD-10-PCS; 2025-08-26)
DX: J95.811 Postprocedural pneumothorax (principal); Z87.891 Personal history of nicotine dependence; M85.80 Other specified disorders of bone density and structure, unspecified site; I10 Essential (primary) hypertension; Q06.4 Hydromyelia; Z90.13 Acquired absence of bilateral breasts and nipples; R91.8 Other nonspecific abnormal finding of lung field
CPT/HCPCS: 32557; 36415; 71045; 76000; 80048; 80053; 81003; 81015; 83036; 83735; 84100; 84145; 85025; 85027; 85610; 85730; 87070; 87086; 87102; 87116; 87205; 88112; 88305; 92610; 93005; 94640; 97162; 99152; C1729; C1769; C1887

== ENCOUNTER 2025-08-31 17:02 | Emergency (ER) | payer MEDICARE, OTHER, SELFPAY ==
[2025-08-31 17:07] VITALS: BP 141/85
[2025-08-31 19:23] VITALS: BP 144/86
--- NOTE | 2025-08-31 20:08 | ED.GENMED ---
History of Present Illness
General
Chief Complaint: Breathing Problem
Source: patient
Time Seen by Provider: 08/31/25 20:01
History of Present Illness
History of Present Illness:
75-year-old female with past medical history of bronchiolitis, chronic cough status post spontaneous pneumothorax with chest tube insertion presenting to the emergency department at request of pulmonology for evaluation after she was monitoring her
pulse ox at home noting that the pulse oximeter was in the 70s, recommended to come to the ER for x-ray to be further evaluated. She notes at baseline she has a cough and states is not any different today, has been using her inhaler with some
relief. She denies any fevers, chills, rigors, chest pain or any other symptoms presently.
Past History
Past History
ED Past Medical History: Arrthythmia (SVT), Cancer (Breast) and Other (Bronchiolitis, spontaneous pneumothorax history)
ED Past Surgical History: Gynecological and Other
Social History
Tobacco: Non-smoker
Alcohol: None
Drug: None
Personal:
Living: with family
Review of Systems
Review of Systems
All Other Systems: ROS reviewed and negative except as documented in HPI and ROS
Phy Exam
Physical Exam
Physical Exam:
GENERAL: Alert , in no apparent distress
HEAD: Normocephalic atraumatic
EYE: conjunctiva clear
NECK: Supple
ENT: o/p clr, mmm.
CARDIAC: Regular rate and rhythm
LUNGS: diffuse ronchi, speaking full sentences, ambulatory pulse ox 97-99%
NEUROLOGICAL: Alert and oriented
SKIN: Warm and dry, skin intact.
MUSCULOSKELETAL: well perfused.
PSYCH: Normal and appropriate interaction.
Scores
Heart Failure Risk
Heart Failure Risk Score: Not Applicable
Heart Score for Chest Pain Patients
STEMI patient?: Not applicable
Withdrawal Assessment of Alcohol
Withdrawal Assessment Completed?: Not applicable
Course
Orders/Labs/Results
Orders:
Orders
08/31/25 17:10
Chest [CR Chest - 2 Views ] Urgent
Comment:
Reason For Exam: SOB
Vital Signs
Initial and Last Documented VS:
Initial Vital Signs
Temp Pulse Resp BP Pulse Ox
98.4 F 92 18 141/85 96
08/31/25 17:07 08/31/25 17:07 08/31/25 17:07 08/31/25 17:07 08/31/25 17:07
Last Documented Vital Signs
Temp Pulse Resp BP Pulse Ox
98.4 F 93 16 144/86 95
08/31/25 17:07 08/31/25 19:23 08/31/25 19:23 08/31/25 19:23 08/31/25 20:09
MDM/Problems Addressed
Differential Diagnosis Includes:
Spontaneous PTX
Bronchitis
Bronchiectasis
PNA
MDM/Problems Addressed:
75-year-old female presenting to the ER at the request of pulmonary for evaluation of low pulse ox at home, here multiple readings within the 90s. Patient does have rhonchorous lung sounds however she is declining any respiratory treatments. Chest
x-ray ordered shows no pneumothorax and no signs of pneumonia. Patient ultimately requesting to go home. I did notify pulmonary that sent patient to the ER. She is otherwise stable for discharge and aware of return precautions
Chronic conditions affecting care: COPD (Bronchiectasis)
*Radiology
Radiology exam reviewed: preliminary read by ED provider (No pneumothorax or pneumonia)
*Pulse Oximetry
SaO2: 95
Oxygen Mode of Delivery: Room air
Patient hypoxic: no
*Critical Care Note
Total Time (30-74mins, 75-104mins- exclusive of procedures): Not Applicable
Patient Management
Discussion with other providers: [facility]
ED Attending Note
-
Portions of this chart may have been created with voice recognition software.� Occasional wrong word or��sound alike� substitutions may have occurred due to the inherent limitations of voice recognition software.
Discharge Plan
Departure
Patient Disposition: Home (Routine Discharge)
Date of Disposition: 08/31/25
Time of Disposition: 20:08
Patient with high blood pressure during this ER visit?: Yes
Discharge Problem:
Cough
Instructions: Cough in adults - ED (DC)
Prescriptions:
No Action
fulvestrant 250 mg/5 mL Syringe
500 mg IM .Q 28 DAYS
Kisqali 400 mg/day (200 mg x 2) Tablet
400 mg PO DAILY
Trelegy Ellipta 100-62.5-25 mcg Blister With Device
1 inh INHALATION PRN PRN (Reason: cough)
ascorbic acid (vitamin C) [Vitamin C] 500 mg Tablet
500 mg PO DAILY
ibuprofen [Advil] 200 mg Tablet
200 mg PO Q6H PRN (Reason: pain/cough)
bisacodyl [Dulcolax (bisacodyl)] 5 mg Tablet,Delayed Release (Dr/Ec)
5 mg PO DAILY PRN (Reason: constipation)
metoprolol succinate 25 mg tablet extended release 24 hr
25 mg PO HS
albuterol sulfate 90 mcg/actuation HFA aerosol inhaler
1 puff INHALATION PRN PRN (Reason: cough)
Caltrate with Vitamin D3
1 tab PO DAILY
Vitamin B12
1,000 mg PO DAILY
Referrals:
Meka Loyola MD [Family Provider, Family Practice]
Interventions
Interventions:
*Risk Screen - Suicide Last Done: 08/31/25 17:07
*General Assessment Last Done: 08/31/25 17:07
*Neglect/Abuse Screening Last Done: 08/31/25 17:07
*Nursing Disposition Last Done: 08/31/25 20:12
ED- Pulmonary Assessment Last Done: 08/31/25 18:11
Discharge Date and Time
Discharge Date/Time: 08/31/25 20:12
Print Language: PORTUGUESE
== END 2025-08-31 20:12 | disposition home or self-care (01) ==
LOC: EMR 17:02
PROVIDERS: EMERGENCY PHYSICIAN Student in an Organized Health Care Education/Training Program; FAMILY PHYSICIAN Family Medicine
DX: R05.3 Chronic cough (principal); R03.0 Elevated blood-pressure reading, without diagnosis of hypertension; J44.9 Chronic obstructive pulmonary disease, unspecified; I47.10 Supraventricular tachycardia, unspecified; Z85.3 Personal history of malignant neoplasm of breast; Z88.1 Allergy status to other antibiotic agents; Z88.0 Allergy status to penicillin; Z88.8 Allergy status to other drugs, medicaments and biological substances
CPT/HCPCS: 99283; 71046